=== PATIENT | male | born 1975 | race Caucasian/White ===

== ENCOUNTER 2017-04-28 08:41 | Emergency (ER) | payer OTHER ==
[2017-04-28 08:49] VITALS: BP 128/64; PULSE 97; TEMP 97.6; BMI 26.8
--- NOTE | 2017-04-28 11:04 | PDOC ---
History of Present Illness - General Chief Complaint: Injury Stated Complaint: LUMP ON HEAD Time Seen by Provider: 04/28/17 09:33 History Source: Care Provider (sister) Exam Limitations: No Limitations - History of Present Illness Initial Comments: 04/28/17 10:54 Patient is a 41-year-old male from a [facility] who is under the care of his sister for the weekend, exact history is unknown patient is mentally disabled questionable cerebral palsy. Medications are unknown. Sister reports that on a regular basis patient asks to rub his head. Upon rubbing his head today she noticed an irregularity in the posterior skull. Feels that the bone is protruding a little more on the right side of the head. Unknown injury. There is no change in behavior. Patient is happy and appropriate as per baseline. Past Medical History: Unknown Allergies: No known allergies Medications: [Unknown] Family History: Non-contributory Social History: Denies smoking, alcohol use, or IVDU Review of Systems GENERAL/CONSTITUTIONAL: [No fever or chills. No weakness. No weight change.] HEAD, EYES, EARS, NOSE AND THROAT: [No change in vision. No ear pain or discharge. No sore throat. ] CARDIOVASCULAR: [No chest pain or shortness of breath.] RESPIRATORY: [No cough, wheezing, or hemoptysis.] GASTROINTESTINAL: [No nausea, vomiting, diarrhea or constipation. No rectal bleeding.] GENITOURINARY: [No dysuria, frequency, or change in urination.] MUSCULOSKELETAL: [No joint or muscle swelling or pain. No neck or back pain.] SKIN AND BREASTS: [No rash or easy bruising.] NEUROLOGIC: [No headache, vertigo, loss of consciousness, or loss of sensation.] PSYCHIATRIC: [No depression or anxiety.] Medications are unknown. ENDOCRINE: [No increased thirst. No abnormal weight change.] HEMATOLOGIC/LYMPHATIC: [No anemia, easy bleeding, or history of blood clots.] ALLERGIC/IMMUNOLOGIC: [No hives or skin allergy. No latex allergy.] Physical Exam: GENERAL: [The patient is awake, alert in no acute distress.] HEAD: [Normal with no signs of trauma. No hematoma, no evidence of abscess, scalp intact. ] EYES: [Pupils equal, round and reactive to light, extraocular movements intact, sclera anicteric, conjunctiva clear.] ENT: [Ears normal, nares patent, oropharynx clear without exudates. Moist mucous membranes. No uvula deviation] NECK: [Normal range of motion, supple without lymphadenopathy, JVD, or masses.] LUNGS: [Breath sounds equal, clear to auscultation bilaterally. No wheezes, and no crackles.] HEART: [Regular rate and rhythm, normal S1 and S2 without murmur, rub or gallop. ] ABDOMEN: [Soft, nontender, normoactive bowel sounds. No guarding, no rebound. No masses. No bruising or abrasions] RECTAL : [Guaiac negative, normal rectal tone.] MUSCULOSKELETAL: [Normal range of motion, no edema. No clubbing or cyanosis. No cords, erythema, or tenderness. No CVA Tenderness with fist.] NEUROLOGICAL: [Cranial nerves II through XII grossly intact. nonverbal, normal gait.] PSYCH: [Normal mood, normal affect as per patient baseline. ] SKIN: [Warm, Dry, normal turgor, no rashes or lesions noted.] Past History - Past Medical History Allergies/Adverse Reactions: Allergies Allergy/AdvReac Type Severity Reaction Status Date / Time No Known Allergies Allergy Verified 04/28/17 08:48 COPD: No Psychiatric Problems: No (MR SLOANE) - Suicide/Smoking/Psychosocial Hx Smoking History: Never smoked Substance Use Type: None *Physical Exam - Vital Signs Last Vital Signs Temp Pulse Resp BP Pulse Ox 97.6 F 97 H 20 128/64 100 04/28/17 08:43 04/28/17 08:43 04/28/17 08:43 04/28/17 08:43 04/28/17 08:43 ED Treatment Course - RADIOLOGY Radiology Studies Ordered: Category Date Time Status HEAD CT WITHOUT CONTRAST [CT] Stat CT Scan 04/28/17 09:51 Completed Medical Decision Making - Medical Decision Making 04/28/17 11:04 A/P: Patient here for evaluation of irregularity to scalp as per patient's sister. Patient does not live with her sister she was just there for the weekend however she reports the patient always asked to rub his head today when rubbing his head she noticed a bony abnormality the posterior scalp. Patient reports feeling the right side of his posterior scalp is slightly raised as compared to the left there is no visible trauma, no hematoma, no visible abscess , no visible injury. Sr. is requesting a CAT scan because she is unsure if something may have happened to him at the [facility]. She didn't call the [facility] who denies any incident. Sister does not know his history nor his medications nor his allergies. I will perform CT scan of the head although seems like a normal variant due to patient's baseline status. CAT scan with no acute intracranial hemorrhage or mass effects there is a mild to moderate hydrocephalus there is no previous MRI or CT of the head to compare. 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 I will DC patient home, to follow up with PMD. Patient is in no distress no change in mental status and no neurological defects as per baseline. *DC/Admit/Observation/Transfer Diagnosis at time of Disposition: Head asymmetry - Discharge Dispostion Disposition: HOME Condition at time of disposition: Good Admit: No - Referrals - Patient Instructions Additional Instructions: Recommend follow-up with your primary care doctor for further evaluation. If any change in mental status or behavior return immediately to ER - Post Discharge Activity
== END 2017-04-28 11:12 | disposition home or self-care (01) ==
LOC: JERFT 08:41 → JER 08:41 → JERFT 11:12
DX: Q03.9 Congenital hydrocephalus, unspecified (principal); F79 Unspecified intellectual disabilities
CPT/HCPCS: 70450-TC; 99281-25